=== PATIENT | female | born 1995 | race Caucasian/White ===

== ENCOUNTER 2021-05-25 03:57 | Inpatient (IN) | payer OTHER, SELFPAY ==
[2021-05-25] VITALS (59 sets, daily range): BP systolic 122–157; BP diastolic 76–109; PULSE 74–123; RESP 16; TEMP 36.4–37.6; O2SAT 87–100; BMI 36.5
[2021-05-25 05:22] LABS: Basophils Percent Auto 0.4 % (0.2-1.2); Eosinophils Absolute Auto 0.1 K/mm3 (0-0.3); Eosinophils Percent Auto 0.9 % (0-4.4); Hematocrit 35.8 % (37.0-47.0); Hemoglobin 11.9 g/dL (12.0-15.0); Immature Granulocyte Absolute 0.06 K/mm3 (0.00-0.031); Immature Granulocyte Percent A 0.6 % (0-0.5); Lymphocytes Absolute Auto 2.11 K/mm3 (0.9-3.2); Lymphocytes Percent Auto 20.6 % (18.3-44.2); Mean Corpuscular HGB Conc 33.2 g/dl (32-36); Mean Corpuscular Hemoglobin 29.5 pg (26-34); Mean Corpuscular Volume 88.8 fl (80-100); Mean Platelet Volume 10.6 fl (7.4-10.4); Monocytes Absolute Auto 0.6 K/mm3 (0.1-0.6); Monocytes Percent Auto 5.9 % (2.6-8.5); Neutrophils Absolute Auto 7.3 K/mm3 (1.3-6.7); Neutrophils Percent Auto 71.6 % (45.5-73.1); Platelet Count Result 201 k/mm3 (150-375); Red Blood Count 4.03 M/mm3 (4.2-5.4); Red Cell Distribution Width 13.7 % (11.5-14.5); White Blood Count 10.2 K/mm3 (4.5-10.0)
--- NOTE | 2021-05-25 06:53 | LDADM ---
This patient, Malick Natarajan, was admitted to Labor/Delivery/Recovery 105 on 05/25/21 at 03:57. Plans for labor, pain management and were discussed with patient. Patient/family oriented to hospital policies and general routines including ID bracelet, bed and alarms, visiting hours, pain management, procedures, bathroom and other care routines, personal items, smoking policy, room service/diet and guest tray routines, security routines, and visiting hours. Patient/Family are encouraged to report perceived risks to care and to ask questions if they do not understand what they are told or what they should do. See OBIX for further documentation.
--- NOTE | 2021-05-25 11:20 | PM.IMHP ---
H&P: HPI History of Present Illness Date/Time: 05/25/21 11:20 Malick is a 25yo @ 41.0wks (IRON 05/18/21) who presented to L&D with rupture of membranes at home @ 0030, clear. She reports contractions. No bleeding. Good movement. She has had regular care w/o issue. Chief Complaint: leakage of fluid Review of Systems Review of Systems: All systems reviewed & are unremarkable except as noted in HPI and below (HPI) [facility] Family History Family History Grandparent Diabetes mellitus Social History Social History Smoking status: Never smoker Alcohol intake: never Substance use: never Gender identity (if verbalized by the patient): Female Sexual Orientation (if Verbalized by the Patient): Straight or Heterosexual Spiritual care concerns: No Meds Home Medications and Allergies Home Medications Medication Instructions Recorded Confirmed Type vits no.126-ferrous fum 1 tablet PO DAILY 04/25/21 05/20/21 History 28 mg iron-folic acid 800 mcg tablet Allergies Allergy/AdvReac Type Severity Reaction Status Date / Time fruits Allergy Severe Anaphylaxis Uncoded 05/09/21 13:26 Vital Signs Vital Signs - 24 hr 05/25/21 04:15 05/25/21 04:24 05/25/21 04:29 Temperature Pulse Rate 99 Respiratory Rate Blood Pressure 150/101 H Pulse Oximetry 99 98 05/25/21 04:30 05/25/21 04:34 05/25/21 04:39 Temperature Pulse Rate 98 Respiratory Rate Blood Pressure 128/93 H Pulse Oximetry 98 99 05/25/21 04:44 05/25/21 04:45 05/25/21 04:49 Temperature Pulse Rate 95 Respiratory Rate Blood Pressure 131/97 H Pulse Oximetry 99 98 05/25/21 04:54 05/25/21 04:59 05/25/21 05:00 Temperature Pulse Rate 96 Respiratory Rate Blood Pressure 137/97 H Pulse Oximetry 97 98 05/25/21 06:30 05/25/21 08:33 05/25/21 08:35 Temperature 97.5 F L 97.8 F Pulse Rate 96 88 Respiratory Rate 16 Blood Pressure 142/92 H 133/94 H Pulse Oximetry 05/25/21 09:27 05/25/21 10:40 Temperature 97.5 F L Pulse Rate 87 91 Respiratory Rate Blood Pressure 131/88 122/92 H Pulse Oximetry Exam Const: General: cooperative, healthy appearing, comfortable and in distress mild (with contractions) Resp: Effort & Inspection: normal respiratory effort Cardio: Rate: regular rate GI: GI Palp: No abdominal tenderness and Yes Soft to palpation : Other: FHT's: 130's/ mod obdulio/ + accels/ no decels - cat 1 TOCO: ctx's q3-5 min Cervix:07/05/-3 Membranes: clear, SROM 0030 Presentation: cephalic H&P: Results Labs Labs: Short CBC 05/25/21 Range/Units 05:07 WBC 10.2 H (4.5-10.0) K/mm3 Hgb 11.9 L (12.0-15.0) g/dL Hct 35.8 L (37.0-47.0) % Plt Count 201 (150-375) k/mm3 Assessment and Plan Assessment and plan (1) SROM (spontaneous rupture of membranes): Status: Acute Additional Plan - Admitted to L&D - Pt has desired to try natural labor; however, after almost 12 hours ruptured, there has been no change in cervix and patient has now agreed to start low dose pitocin - IV pain meds or epidural PRN pain - Ampicillin at 18hr ROM - GBS negative
--- NOTE | 2021-05-25 11:48 | WPDHPUPDATE1 ---
History and Physical Update Update Date/Time: 05/25/21 11:48 History and Physical has been reviewed, including an updated exam of the patient. There are NO changes in the patient's condition. Risks, benefits, and alternatives have been discussed and questions answered. Patient agrees to proceed with procedure.
[2021-05-25] MEDS: LACTATED RINGERS 1,000 ML 125 ML IV CONT (11:52)
[2021-05-25 17:49] LABS: Alanine Aminotransferase 18 U/L (4-35); Albumin Level 3.8 g/dL (3.5-5.1); Alkaline Phosphatase 188 U/L (38-126); Anion Gap 6 mmol/L (8-16); Aspartate Amino Transferase 25 U/L (14-36); Bilirubin,Total 0.4 mg/dL (0.2-1.3); Blood Urea Nitrogen 6 mg/dL (7-17); Calcium 9.2 mg/dL (8.4-10.2); Carbon Dioxide 22 mmol/L (22-30); Chloride 103 mmol/L (98-107); Estimated CRCL calculation 182 ml/min; Estimated Glomerular Filt Rate > 60; Glucose 87 mg/dL (65-110); Potassium 3.7 mmol/L (3.4-5.0); Sodium 131 mmol/L (137-145)
[2021-05-25] MEDS: fentaNYL CITRATE INJ (*CRX) 100 MCG/2 ML VIAL 50 MCG IV PUSH ×2 (18:22→18:35)
[2021-05-25] MEDS: AMPICILLIN 2 GM/NS 100 ML 2 GM/100 ML BAG IVPB (18:40)
[2021-05-25] MEDS: fentaNYL CITRATE INJ (*CRX) 100 MCG/2 ML VIAL IV PUSH ×2 (20:11→21:15)
[2021-05-25] MEDS: AMPICILLIN 1 GM/NS 50 ML 1 GM/50 ML BAG IVPB (22:16)
[2021-05-25] MEDS: miSOPROStol 200 MCG TABLET 800 MCG (23:10)
--- NOTE | 2021-05-25 23:27 | P.PCNOB_ITS ---
OB - Delivery Note Procedure Delivery date: 05/25/21 Intrapartal Events: Other (prolonged rupture of membranes) Induction method: None Delivery augmentation: Pitocin Delivery monitor: External FHT and External Uterine Route of delivery: Laceration Description: Perineal - 1st Degree and Other (left labial hematoma) Delivery repair: vicryl Specimen: No Quantitative Blood Loss (ml): 400 Anesthesia type: None Disposition: floor Baby Date of : 05/25/21 Time of : 22:58 Weeks of gestation at delivery: 41 Infant gender: Female Weight (pounds): 8 Weight (ounces): 1 presentation: vertex position: Left Occiput Anterior Placenta delivery description: Expressed Cord Vessel Description: 3 Vessels, Nuchal Cord (x2), Loose, Reduced (x1) and Delayed Cord Clamping score one minute: 7 score five minutes: 9 Narrative: Malick rapidly progressed to complete dilation with strong desire to push. She pushed with good maternal effort for approximately 15 minutes. She delivered the infant's head FERNANDA over intact perineum. Nuchal cord was palpated and reduced. However, when feeling for the anterior shoulder it was noted to be the left shoulder. With slight downward traction the anterior shoulder and body easily delivered. The infant was immediately placed skin to skin. Delayed cord clamping was performed. The pediatric nurse was at the bedside and stimulation was performed and spontaneous cry was heard. The umbilical cord was then clamped and cut. A segment of cord was collected for cord gases. The remaining core blood was collected for typing. With Pitocin running and gentle downward traction on the cord, the placenta delivered without complications. Brisk bleeding was then noted and bimanual exam revealed uterine atony which did respond to bimanual massage. Patient was examined and a small first-degree perineal laceration was noted, as well as a 2cm left labial hematoma near her clitoris. The first degree perineal laceration was repaired in the normal fashion using 2-0 Vicryl after she was anesthetized with 1% lidocaine. Misopros usha 800 mcg was placed rectally to prevent further atony. Sponge, lap, instrument, and needle counts were correct at the end the procedure. Mom and baby were left bonding in the birthing suite in stable condition. [facility] Delivery Billing Delivery Delivery: Delivery Charge
[2021-05-25] MEDS: OXYTOCIN 30 UNITS/NS 500 ML 30 UNITS/500 ML BAG 125 UNITS IV CONT (23:30)
[2021-05-25] MEDS: LIDOCAINE HCL 1% PF 30 ML VIAL (23:39)
[2021-05-26] VITALS (10 sets, daily range): BP systolic 122–159; BP diastolic 78–91; PULSE 89–108; RESP 18; TEMP 36.4–37.1; O2SAT 97–99
--- NOTE | 2021-05-26 04:36 | PC.NURSE ---
05/26/2021 at 0328 Patient transferred to post room #287. Support person present. Oriented to unit, room, information board, rooming in, admission packet and security measures. Patient verbalizes understanding.
[2021-05-26 05:25] LABS: Hematocrit 33.7 % (37.0-47.0); Hemoglobin 11.2 g/dL (12.0-15.0)
--- NOTE | 2021-05-26 06:28 | PC.NURSE ---
Patient was given cytotec 800 mcg after deliverly so this patient should be considered a high hemorrhage risk.
[2021-05-26] MEDS: MULTIVIT/MIN/PREN/FOL AC/IRON TABLET 1 TAB PO (09:46)
[2021-05-26] MEDS: DOCUSATE SODIUM 100 MG CAPSULE PO (09:46)
--- NOTE | 2021-05-26 10:28 | P.PNOB_ITS ---
OB - PN: Subj Subjective Date/time seen: 05/26/21 10:28 Narrative: PPD#1 Malick reports doing well today. 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 Her pain is controlled. She is tolerating regular diet, voiding, passing gas, and ambulating without issues. She is breast feeding. She denies symptoms of HTN. OB - PN: Obj Data Labs CBC & Chem 7: 05/26/21 04:58 05/25/21 17:23 Labs: Laboratory Results - last 24 hr 05/25/21 05/26/21 17:23 04:58 Hgb 11.2 L Hct 33.7 L Sodium 131 L Potassium 3.7 Chloride 103 Carbon Dioxide 22 Anion Gap 6 L BUN 6 L Creatinine 0.50 L Estim Creat Clear Calc 182 Estimated GFR > 60 Glucose 87 Calcium 9.2 Total Bilirubin 0.4 AST 25 ALT 18 Alkaline Phosphatase 188 H Total Protein 7.0 Albumin 3.8 OB - PN A/P Assessment and Plan (1) Normal vaginal delivery of fifth : Code(s): O80 - Encounter for full-term uncomplicated delivery Status: Acute (2) Elevated blood pressure reading: Code(s): R03.0 - Elevated blood-pressure reading, without diagnosis of hypertension Status: Acute Plan day: 1 Plan: routine care and discharge home (tomorrow) Comments: - Monitor BP's, most recent normal-- pt asymptomatic - Pelvic rest; take meds as prescribed - ER return precautions: fever, n/v/abd pain, bleeding, HTN Time Spent With Patient Time: Total time spent is greater than 50% in coordination of care (as documented) at patient's floor/unit and/or counseling patient: Review of Systems Constitutional: Constitutional: Denies chills, Denies fever(s) and Denies headache(s) Eyes: Eyes: Denies change in vision ENT: Denies dizziness and Denies headache(s) Cardiovascular: Cardiovascular: Denies chest pain, Denies palpitations and Denies dyspnea Respiratory: Respiratory: Denies cough and Denies dyspnea Gastrointestinal: Gastrointestinal: Denies nausea and Denies vomiting Neurologic: Denies dizziness and Denies headache(s) Endocrine: Endocrine: Denies palpitations Exam Const: General: cooperative, comfortable and no acute distress Orientation/consciousness: patient oriented x3 Resp: Effort & Inspection: normal respiratory effort Auscultation: clear to auscultation bilaterally Cardio: Rate: regular rate GI: Inspection: non-distended GI Palp: No abdominal tenderness and Yes Soft to palpation Auscultation: normal bowel sounds : Other: fundus firm Skin: General skin exam: normal color Neuro: General: patient oriented x3 Extrem: General: normal to inspection Psych: Appearance: grossly normal Affect: normal affect Attitude: cooperative
[2021-05-27 00:20] VITALS: BP 124/58; PULSE 86; RESP 16; TEMP 36.9; O2SAT 97
[2021-05-27 07:21] LABS: Rapid Plasma Reagin Non-Reactive (NonReactive)
[2021-05-27] MEDS: MULTIVIT/MIN/PREN/FOL AC/IRON TABLET 1 TAB PO (07:38)
[2021-05-27] MEDS: DOCUSATE SODIUM 100 MG CAPSULE PO (07:38)
[2021-05-27 07:45] VITALS: BP 129/82; PULSE 97; RESP 18; TEMP 36.8; O2SAT 97
--- NOTE | 2021-05-27 08:29 | PC.NURSE ---
Patient viewed the discharge video Mother & Baby Care, The First Two Weeks . Patient was given the opportunity and encouraged to ask questions. Patient verbalized understanding of information shared and has been given the mother/baby guide for home reference.
--- NOTE | 2021-05-27 09:30 | PC.NURSE ---
0835 - 0905 Introductions were made and mother led the discussion of her desires to feeding her baby and her experience so far. Reviewed handwashing to prevent infection before and after taking care of her baby. Mother verbalizes she is able to independently latch . Discussed how to watch for early feeding cues, place skin to skin, then feeding baby when infant is ready or every 2-3 hours. Reviewed positioning/alignment. Mother is skin to skin with infant. Encouraged mother with to the left breast in football position using nipple to nose with asymmetrical 140-degree latch. She denies any nipple discomfort. Reviewed there is to be no pain with , how to detach infant from the breast, visuals to watch for to confirm effective . Reviewed effective latching with resources tool/handout and referred to the mom and baby guide. Nipple tenderness is relieved with improving positioning and effective latching. Use of warm, wet compress to nipples and air dry for improved comfort. Infant was able to maintain effective latch. Mother is feeding as needed to meet requirements. Mother has verbalized understanding watching for feeding cues for responsive feeding, how to stimulate infant to initiate from the start of the last feeding when she sees feeding cues, 8-12 times in 24 hours approximately every 2-3 hours from the start of the last feeding. Infant has had 10 feedings in the past 24 hours and meets the outcomes for weight, output and jaundice. Mother states she feels confident to continue effectively her infant at home. Reviewed production of human milk, transition of milk, signs of adequate intake and engorgement prevention/relief and when to call the care provider. Reviewed community resources and outpatient services as listed in the mom and baby guide/[facility] website. Reinforced watching for feeding cues with responsive feeding and how to stimulate infant to initiate feeding three hours from the start of the last feeding. Mother voiced understanding of information shared. Reported to primary RN.
[2021-05-28 11:42] VITALS: BP 126/85; PULSE 90; RESP 20; TEMP 36.4; O2SAT 100
--- NOTE | 2021-05-29 07:55 | PM.OBDSVD ---
DS: Admitting Diagnosis Discharge Date 05/27/21 Admitting Diagnosis leakage of fluid DS: Discharge Diagnosis Discharge Diagnosis (1) SROM (spontaneous rupture of membranes): Status: Acute (2) Elevated blood pressure reading: Code(s): R03.0 - Elevated blood-pressure reading, without diagnosis of hypertension Status: Acute (3) Normal vaginal delivery of first : Code(s): O80 - Encounter for full-term uncomplicated delivery Status: Acute OB - DS: Summary OB Procedures : Ultrasound OB Procedures Intrapartum: Spontaneous Vag Delivery OB Procedures: : None Peripartum Data Delivery Method: Natural Vaginal Laceration Description: Perineal - 1st Degree complications: none 1: Gender: Female Disposition of : home Status at Discharge Functional status at discharge: independent ambulation Overall status at discharge: patient is back to baseline Time Spent with Patient Time attestation: Total time spent providing and/or coordinating discharge services: Time spent: Less than 30 minutes Exam Const: General: cooperative, comfortable and no acute distress Orientation/consciousness: patient oriented x3 Resp: Effort & Inspection: normal respiratory effort Auscultation: clear to auscultation bilaterally Cardio: Rate: regular rate GI: Inspection: non-distended GI Palp: No abdominal tenderness and Yes Soft to palpation Auscultation: normal bowel sounds : Other: fundus firm Skin: General skin exam: normal color Neuro: General: patient oriented x3 Extrem: General: normal to inspection Psych: Appearance: grossly normal Affect: normal affect Attitude: cooperative Discharge Plan Discharge Attending physician on discharge: Laurence Salcido Discharging Clinician: Laurence Salcido Anticipated Discharge Date/Time: 05/27/21 11:00 Patient Disposition: Home, Self-Care Activity: may shower, may drive after 2 weeks and pelvic rest Diet: regular Discharge Instructions: Education: Mom and Baby Guide Given to: Mother Follow-Up: Call your delivering provider's office for an appointment to be seen in: 4 Weeks Mom and baby should come to the [facility] for the follow-up appointment. Appointment Date/Time: May 28, 2021 at 11:00 am What to expect at your follow-up visit: Blood Pressure Check & Physical Assessment Call [phone] if you are unable to keep your appointment time. BREAST CARE: * Wear a snug supportive bra. * For engorgement discomfort: Breast Feeding: * Apply warm moist washcloths * Express milk as needed to relieve engorgement * Wear loose clothing * For sore nipples: * Identify correct latch-on * Apply warm moist washcloths before and after nursing * Air dry nipples after nursing * May apply Lansinoh cream to nipples PERINEAL CARE: * Until bleeding stops, use your beverly bottle after urinating * Change your pad frequently throughout the day * You may take sitz baths several times a day (fill your bathtub with warm water and soak for 20 minutes.) Do NOT bathe in the water * No tub baths until seen by your physician - You may shower ACTIVITY: * Rest as much as possible. * Do not exercise or lift anything heavier than your baby (such as laundry or other children.) * Avoid stairs or driving as much as possible. * Do not put anything into the vagina. No douching, tampons, or sexual activity until seen by physician. NOTIFY PHYSICIAN IF YOU HAVE ANY QUESTIONS OR IF ANY OF THE FOLLOWING SYMPTOMS OCCUR: * If your episiotomy/perineum becomes red, swollen, or more painful than what you have experienced in the hospital. * If your vaginal bleeding becomes foul smelling. * If your vaginal bleeding becomes more heavy than a period or if your bleeding changes from pink to bright red. However
== END 2021-05-27 10:02 | disposition home or self-care (01) | DRG 807 ==
LOC: ANHLDR 04:01 → ANHOB2 05-26 03:59
PROVIDERS: Admitting Provider Obstetrics & Gynecology; PCP Family Medicine; Visit Provider Obstetrics & Gynecology
DX: O69.81X0 Labor and delivery complicated by cord around neck, without compression, not applicable or unspecified (principal); Z37.0 Single live birth; O70.0 First degree perineal laceration during delivery; O42.92 Full-term premature rupture of membranes, unspecified as to length of time between rupture and onset of labor; Z3A.41 41 weeks gestation of pregnancy
CPT/HCPCS: 36415; 80053; 85014; 85018; 85025; 86592; 86850; 86900; 86901; A9270; J0290; J2590; J3010; J7120